=== PATIENT | male | born 2005 | race Caucasian/White ===

== ENCOUNTER 2024-11-30 11:22 | Emergency (ER) | payer SELFPAY ==
[~2024-11-30] VITALS: Ht 175.3 cm; Wt 100.0 kg
[2024-11-30 11:27] VITALS: BP 151/81; RESP 16; TEMP 36.9; O2SAT 99
[2024-11-30 11:28] VITALS: PULSE 93; O2SAT 98
[2024-11-30] MEDS: IBUPROFEN 600MG TABLET PO ONE (12:45)
== END 2024-11-30 13:04 | disposition home or self-care (01) ==
LOC: ER 11:22
DX: S46.911A Strain of unspecified muscle, fascia and tendon at shoulder and upper arm level, right arm, initial encounter (principal); S39.012A Strain of muscle, fascia and tendon of lower back, initial encounter; V43.52XA Car driver injured in collision with other type car in traffic accident, initial encounter; Y93.89 Activity, other specified; Y92.89 Other specified places as the place of occurrence of the external cause; Y99.8 Other external cause status
CPT/HCPCS: 99282; Z7610 ×3